=== PATIENT | male | born 1930 | race Caucasian/White ===

== ENCOUNTER 2016-03-03 14:03 | Emergency (ER) | payer MEDICARE ==
[~2016-03-03] VITALS: Ht 170.2 cm; Wt 90.7 kg
[~2016-03-03 14:03] MED LIST: ACET600C5 PO; ACHYD1T PO; AGM875T PO; ALBU2.5V52 INH; ASP325TEC PO; CARV12.53 PO; CRV6.25T PO; DCS100C PO; ENXP40I.4 SC; FINA5TAB6 PO; FRSM20T PO; FURO40TA4 PO; Famotidine PO; GLUC100016 PO; LOSA25TA5 PO; Levofloxacin PO; MAG30ORA2 PO; METH40VI2 IV; METH500T7 PO; MULT-1029 PO; Naloxone Hcl IV; ONDA2VIA IV; PRAV80TA2 PO; Polyethylene Glycol PO; SPRN25T PO; Sodium Chloride IV; TIOT18CA2 INH; [UNRECOGNIZED DRUG - OTHER] EPI
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
[2016-03-03] MEDS ORDERED: DEXAMETHASONE 4 MG/ML SDV (DECADRON) IV ONE (14:45)
[2016-03-03 15:05] LABS: BASOPHILS % (AUTO) 0 % (0-10); EOSINOPHILS # (AUTO) 0.4 10^3/uL (0.0-0.3); EOSINOPHILS % (AUTO) 4 % (0-10); LYMPHOCYTES # (AUTO) 1.8 X 10^3 (1.0-4.0); LYMPHOCYTES % (AUTO) 21 % (12-44); MEAN CORPUSCULAR HEMOGLOBIN 32 PG (25-34); MEAN CORPUSCULAR HGB CONC 34 G/DL (32-36); MEAN CORPUSCULAR VOLUME 93 FL (80-99); MEAN PLATELET VOLUME 9.9 FL (7.4-10.4); MONOCYTES # (AUTO) 0.9 X 10^3 (0.0-1.0); MONOCYTES % (AUTO) 11 % (0-12); NEUTROPHILS # (AUTO) 5.4 X 10^3 (1.8-7.8); NEUTROPHILS % (AUTO) 64 % (42-75); PLATELET COUNT 263 10^3/uL (130-400); RED BLOOD COUNT 4.64 10^6/uL (4.35-5.85); RED CELL DISTRIBUTION WIDTH 13.8 % (10.0-14.5); WHITE BLOOD COUNT 8.5 10^3/uL (4.3-11.0)
[2016-03-03 15:20] LABS: ANION GAP 10 MMOL/L (5-14); BLOOD UREA NITROGEN 13 MG/DL (7-18); BUN/CREATININE RATIO 14; CALCIUM 8.5 MG/DL (8.5-10.1); CARBON DIOXIDE 22 MMOL/L (21-32); CHLORIDE 106 MMOL/L (98-107); CREATININE SERUM 0.93 MG/DL (0.60-1.30); GFR ESTIMATED > 60; GLUCOSE 100 MG/DL (70-105); POTASSIUM 4.1 MMOL/L (3.6-5.0); SODIUM 138 MMOL/L (135-145)
[2016-03-03 15:26] LABS: BILIRUBIN,URINE NEGATIVE (NEGATIVE); KETONES,URINE NEGATIVE (NEGATIVE); LEUKOCYTE ESTERASE ,URINE NEGATIVE (NEGATIVE); NITRITE,URINE NEGATIVE (NEGATIVE); PH,URINE 6 (5-9); PROTEIN,URINE NEGATIVE (NEGATIVE); UROBILINOGEN,URINE NORMAL (NORMAL)
[2016-03-03 15:35] LABS: SQUAMOUS EPITHELIAL CELL,UR RARE /HPF
--- NOTE | 2016-03-03 15:38 | Diagnostic Imaging Report ---
INDICATION: COPD, short of air, cough. EXAMINATION: Two view of the chest were obtained. FINDINGS: Normal heart size and vascularity. The lungs are clear. There is obstructive airway disease. There is no effusion or pneumothorax. A pacemaker is present. IMPRESSION: No acute abnormality is seen with no change from 06/10/14. Dictated by: Dictated on workstation # [id number]
[2016-03-03] MEDS ORDERED: FLUT9.9S NS (15:59)
[2016-03-03 16:37] VITALS: BP 139/68
== END 2016-03-03 16:37 | disposition home or self-care (01) ==
LOC: EDUNIT# 14:03 → ER 14:05
DX: H81.13 Benign paroxysmal vertigo, bilateral (principal); H65.06 Acute serous otitis media, recurrent, bilateral; I10 Essential (primary) hypertension; J44.9 Chronic obstructive pulmonary disease, unspecified; R09.81 Nasal congestion; Z79.82 Long term (current) use of aspirin; Z79.899 Other long term (current) drug therapy
CPT/HCPCS: 36415; 71020; 80048; 81000; 85025; 93005; 96374

== ENCOUNTER → 2016-04-30 | Outpatient (CLI) | payer MEDICARE ==
[~2016-04-30] MED LIST changes: +FLUT9.9S NS
--- OUTSIDE RECORDS SUMMARY | 2016-04-30 08:19 | XMS REPORT | Continuity of Care Document ---
Author Author [facility] Organization [facility] Address Unknown Phone Unavailable Care Team Providers [facility] Scientist Name Role Phone RUBEN CASILLAS MD PCP Insurance Providers Payer Name Policy Number Subscriber Name Relationship [facility] [place] [id number] Juan Tobias 18 Self / Same As Patient s Medicare [id number] CharlesJuan hdz 18 Self / Same As Patient [facility] Supp [id number] JackytristanJuan Naranjo 18 Self / Same As Patient Advance Directives Directive Response Recorded Date/Time Advance Directives Yes 04/26/14 7:00pm 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 Nasreen and Ruth Corbett 7:00pm [...] PO TWICE A DAY 04/26/14 Active Tiotropium [place] 1 Cap INH DAILY 04/26/14 Active Acetylcysteine [...] Reaction Status Last Updated Sulfa (Sulfonamide Antibiotics) ([id number]) Allergy Unknown Active Immunizations Name Given Type Date of Pneumonia Vaccine 02/11/08 Historical Date of Influenza Vaccine 12/11/13 Historical Tetanus Booster (TDap) More than 5yrs Historical Tdap 04/26/14 Administered pneumococcal polysaccharide PPV23 04/29/14 Administered Tdap 04/26/14 Administered pneumococcal polysaccharide PPV23 04/29/14 Administered Vital Signs Acute Vital Signs Vital Response Date/Time Temperature (Fahrenheit) 96.8 degrees F (97.6 - 99.5) Temperature (Calculated Celsius) 36.32745 degrees C (36.4 - 37.5) Temperature Source Tympanic Pulse Rate (adult) 66 bpm (60 - 90) Respiratory Rate 23 bpm (12 - 24) O2 Sat by Pulse Oximetry 93 % (88 - 100) Blood Pressure 132/62 mm Hg Pain Pain Intensity 3 Height (Feet) 5 feet Height (Inches) 4.00 inches Height (Calculated Centimeters) 162.822173 cm Weight (Pounds) 212 pounds Weight (Calculated Grams) 94298.583 gm Weight (Calculated Kilograms) 96.958080 kilograms Calculated BMI 36.39 Results Laboratory Results [...] SELECTED GROUPS OF HIGH RISK PATIENTS. [employer] CONSENSUS CONFERENCE ON ANTITHROMBOTIC THERAPY (2000). Activated Partial Thromboplast Time 24 SEC 24-35 04/26/2014 12:30pm 1:07pm D-Dimer 12.90 UG/ML H 0.00-0.49 04/26/2014 12:30pm 04/26/2014 2:01pm Urine Color YELLOW 04/26/2014 2:20pm 04/26/2014 2:39pm Urine Clarity SLIGHTLY CLOUDY 04/26/2014 2:20pm 04/26/2014 2:39pm Urine pH 6 5-9 04/26/2014 2:20pm 04/26/2014 2:39pm Urine Specific [place] 1.010 * 1.016-1.022 04/26/2014 2:20pm 2014 2:39pm [...] Encounters Encounter Location Date/Time Discharged Inpatient [facility] 04/26/14 2:22pm Recent Diagnosis Right pulmonary contusion Hypotension Right pulmonary contusion Femur open fracture, left
--- NOTE | 2016-04-30 11:00 | Diagnostic Imaging Report ---
PROCEDURE: CT chest without contrast. TECHNIQUE: Multiple noncontiguous 1 mm thick axial images were obtained through the chest without the use of intravenous contrast. This is performed the in the supine inspiration, expiration and prone inspiration based on a HRCT protocol, sampling images in the upper, mid and lower lung zones. Indication: COPD. Cough. Bronchiectasis. FINDINGS: Scattered areas of linear scarring are seen mostly in the mid lung zones and in the bases. Slightly more prominent chronic atelectasis similar to 05/12/2014 with probable elements of scarring in the inferior lingula is noted. There is interval resolution of previously seen effusion and right lower lobe consolidation noted on May 2014 exam. This is not in a pattern of chronic interstitial lung disease and is more likely related to prior infections or injury. No significant consolidation. There is mild upper lobe predominant emphysema changes with no large blebs or bulla. No alveolar or groundglass opacities in the lungs seen. There is no honeycombing. There are old rib fractures with healing seen in the lateral lower right ribs. The mediastinum demonstrate no mass or fluid collection. Pacemaker leads are seen. The heart size is not enlarged. No pleural or pericardial effusion. IMPRESSION: 1. Mild upper lobe predominant emphysema. 2. Scattered the mid and lower lobe areas of scarring with subsegmental areas of scarring and chronic atelectasis in the inferior lingula. This is favored to be sequela of prior infections and injury rather than related to chronic interstitial lung disease. Dictated by: Dictated on workstation # [id number]
--- NOTE | 2016-04-30 12:22 | Diagnostic Imaging Report ---
PROCEDURE: CT sinuses without contrast. TECHNIQUE: Multiple contiguous axial images were obtained through the sinuses without the use of intravenous contrast. Coronal and sagittal reformations were then performed. INDICATION: Chronic sinusitis. 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 The right frontal sinus is clear. There is minimal mucosal thickening at the anterior ethmoidal air cells. Minimal mucosal thickening in the inferior aspect of the maxillary sinuses is noted. There is patent ostiomeatal complex seen bilaterally. The sphenoidal sinuses are largely clear with minimal mucosal thickening anteriorly in the left sphenoidal sinus. The nasal cavity is patent. There is mild nasal septal deviation to the right side. There is mild mucosal thickening along the turbinates particularly the right inferior turbinate without obliteration of the nasal passages. The mastoid air cells and middle ear cavities are patent. The orbits appear symmetric. There is evidence of prior globe surgery bilaterally. IMPRESSION: Minimal sinus disease. Dictated by: Dictated on workstation # [id number]
== END ==
LOC: RAD 08:15
PROVIDERS: ATTEND Internal Medicine Critical Care Medicine
DX: J32.9 Chronic sinusitis, unspecified (principal); J47.9 Bronchiectasis, uncomplicated; J41.1 Mucopurulent chronic bronchitis
CPT/HCPCS: 70486; 71250

== ENCOUNTER 2017-02-27 13:00 | Outpatient (RCR) | payer MEDICARE | END 2017-02-27 13:49 | disposition home or self-care (01) | PROVIDERS: ATTEND Nurse Practitioner | DX: R42 Dizziness and giddiness (principal) ==